=== PATIENT | male | born 1960 | race Caucasian/White ===

== ENCOUNTER 2022-08-19 09:00 | Outpatient (NON) | payer OTHER, SELFPAY | END 2022-08-19 09:01 | disposition home or self-care (01) | LOC: ANHLAB 08-20 12:22 | PROVIDERS: Visit Provider Nurse Practitioner | DX: C44.319 Basal cell carcinoma of skin of other parts of face (principal) | CPT/HCPCS: 88305 ==

== ENCOUNTER 2022-09-13 13:25 | Outpatient (NON) | payer OTHER, SELFPAY | END 2022-09-13 13:26 | disposition home or self-care (01) | LOC: ANHLAB 13:25 | PROVIDERS: Visit Provider Nurse Practitioner | DX: C44.319 Basal cell carcinoma of skin of other parts of face (principal) | CPT/HCPCS: 88305; 88331 ==